=== PATIENT | male | born 2000 | race Caucasian/White ===

== ENCOUNTER 2025-01-23 16:02 | Emergency (ER) | payer OTHER ==
[~2025-01-23] VITALS: Ht 175.3 cm; Wt 117.7 kg
[2025-01-23 18:27] VITALS: PULSE 89; RESP 18; TEMP 99; O2SAT 98
== END 2025-01-23 18:27 | disposition home or self-care (01) ==
LOC: FSED 16:10
DX: R10.32 Left lower quadrant pain (principal); N20.1 Calculus of ureter; R31.9 Hematuria, unspecified
CPT/HCPCS: 74176; 80053; 81003; 85025; 99284

== ENCOUNTER 2025-01-26 17:05 | Emergency (ER) | payer SELFPAY ==
[~2025-01-26] VITALS: Ht 175.3 cm; Wt 119.0 kg
[2025-01-26] MEDS: ONDANSETRON HCL INJ 2MG/ML 2ML 2 MG/ML VIAL IV ONE (17:41)
[2025-01-26] MEDS: KETOROLAC TROMETHAMINE 30 MG/ML VIAL IV STA (17:41)
[2025-01-26] MEDS: LACTATED RINGER'S 1,000 ML INJ ONE (17:41)
[2025-01-26] MEDS ORDERED: TYLENOL325 MG PO (17:43)
[2025-01-26] MEDS ORDERED: KETOROLAC TROME10 MG PO (17:43)
[2025-01-26] MEDS ORDERED: ONDANSETRON ODT4 MG PO (17:43)
[2025-01-26 18:55] VITALS: PULSE 66; RESP 16; TEMP 98.5; O2SAT 98
[2025-01-27] MEDS ORDERED: FLOMAX0.4 MG PO (10:37)
[2025-01-27] MEDS ORDERED: ULTRAM 50MG50 MG PO (10:37)
== END 2025-01-26 18:59 | disposition home or self-care (01) ==
LOC: FSED 17:08
DX: R31.9 Hematuria, unspecified (principal); N13.2 Hydronephrosis with renal and ureteral calculous obstruction; R10.9 Unspecified abdominal pain; R11.2 Nausea with vomiting, unspecified
CPT/HCPCS: 74176; 80053; 81003; 96374; 96375; 99284; J1885; J2405; J7121

== ENCOUNTER 2025-01-27 09:49 | Emergency (ER) | payer OTHER ==
[~2025-01-27] VITALS: Ht 175.3 cm; Wt 118.8 kg
[~2025-01-27 09:49] MED LIST: KETOROLAC TROME10 MG PO; ONDANSETRON ODT4 MG PO; TYLENOL325 MG PO
[2025-01-27 10:03] VITALS: PULSE 98; RESP 18; TEMP 98.6; O2SAT 99
[2025-01-27] MEDS ORDERED: FLOMAX0.4 MG PO (10:37)
[2025-01-27] MEDS ORDERED: ULTRAM 50MG50 MG PO (10:37)
== END 2025-01-27 10:52 | disposition home or self-care (01) ==
LOC: ER 09:58
DX: R10.30 Lower abdominal pain, unspecified (principal); N20.0 Calculus of kidney; R11.2 Nausea with vomiting, unspecified; M54.50 Low back pain, unspecified
CPT/HCPCS: 99282